=== PATIENT | female | born 1965 | race Caucasian/White ===

== ENCOUNTER 2023-12-07 15:25 | Inpatient (IN) | payer OTHER ==
[2023-12-07 19:06] VITALS: BMI 24.9
[2023-12-07] MEDS ORDERED: DICYCLOMINE HCL 10 MG CAPSULE PO PRN (19:51)
[2023-12-07] MEDS ORDERED: MAG HYDROX/AL HYDROX/SIMETH 30 ML UNIT-DOSE CUP PO PRN (19:51)
[2023-12-07] MEDS ORDERED: MAGNESIUM HYDROX 2400MG/30ML ORAL SUSPENSION 30 ML CUP PO PRN (19:51)
[2023-12-07] MEDS ORDERED: BENZONATATE 200 MG CAPSULE PO PRN (19:51)
[2023-12-07] MEDS ORDERED: NICOTINE POLACRILEX 4 MG GUM BUC PRN (19:51)
[2023-12-07] MEDS ORDERED: IBUPROFEN 600 MG TABLET (FP) PO PRN (19:51)
[2023-12-07] MEDS ORDERED: BENZOCAINE/MENTHOL (CHLORASEPTIC ) LOZENGE MM PRN (19:51)
[2023-12-07] MEDS ORDERED: POLYETHYLENE GLYCOL (HEALTHYLAX) 3350 17 GM PACKET PO PRN (19:51)
[2023-12-07] MEDS ORDERED: IBUPROFEN 400 MG TABLET (FP) PO PRN (19:51)
[2023-12-07] MEDS ORDERED: NALOXONE (NARCAN) HCL 4 MG/0.1 ML SPRAY NS PRN (19:51)
[2023-12-07] MEDS ORDERED: BISMUTH SUBSALICYLATE 524 MG/30 ML PO PRN (19:51)
[2023-12-07] MEDS ORDERED: NALOXONE HCL 0.4 MG/ML VIAL IM PRN (19:51)
[2023-12-07] MEDS ORDERED: ONDANSETRON *ODT* 4 MG TABLET SL PRN (19:51)
[2023-12-07] MEDS ORDERED: LOPERAMIDE HCL 2 MG CAPSULE PO PRN (19:51)
[2023-12-07] MEDS ORDERED: ACETAMINOPHEN 325 MG TABLET (FP) PO PRN (19:51)
[2023-12-07] MEDS ORDERED: guaiFENesin 600 MG TABLET.ER (FP) PO PRN (19:51)
[2023-12-07] MEDS: MELATONIN 5 MG TABLETS PO SCH (23:08)
[2023-12-07] MEDS: THIAMINE 100 MG TABLET PO SCH (23:09)
[2023-12-08] MEDS: methaDONE HCL 10 MG TABLET (FOR DETOX USE ONLY) PO ONE (07:56)
[2023-12-08] MEDS: metFORMIN HCL 500 MG TABLET (FP) PO SCH (07:56)
[2023-12-08] MEDS: BUPRENORPHINE/NALOXONE 0.5 MG/0.125 MG FILM SL ONE ×2 (07:59→22:49)
[2023-12-08] MEDS: PRENATAL VITAMINS W/ FOLIC ACID TABLET (FP) PO SCH (11:07)
[2023-12-08] MEDS: NICOTINE 21 MG/24 HOURS TOPICAL PATCH TD SCH (11:07)
[2023-12-08] MEDS: LISINOPRIL 20 MG TABLET PO SCH (11:08)
[2023-12-08] MEDS: cloNIDine HCL 0.1 MG TABLET PO SCH (11:08)
[2023-12-08 11:35] LABS: HEMATOCRIT 42.6 % (32.4-45.2); HEMOGLOBIN 13.9 GM/dL (10.7-15.3); MCH 26.7 pg (25.7-33.7); MCHC 32.6 g/dl (32.0-36.0); MEAN CELL VOLUME 81.9 fl (80-96); MEAN PLT VOLUME 10.8 fl (7.5-11.1); PLATELET COUNT 118 10^3/uL (134-434); RDW 16.2 % (11.6-15.6); WHITE BLOOD COUNT 6.5 K/mm3 (4.0-10.0)
[2023-12-08 11:36] LABS: CHLORIDE 100 mmol/L (98-107); POTASSIUM 3.3 mmol/L (3.5-5.1); SODIUM 138 mmol/L (136-145)
[2023-12-08 11:41] LABS: ALBUMIN 3.4 g/dl (3.4-5.0); BLOOD UREA NITROGEN 9.4 mg/dL (7-18); SGOT/AST 22 U/L (15-37); SGPT/ALT 26 U/L (13-61)
[2023-12-08] MEDS: DIVALPROEX SODIUM 250 MG TABLET E.C. PO SCH (11:42)
[2023-12-08 11:43] LABS: ANION GAP 7 mmol/L (4-13); BILIRUBIN,TOTAL 0.7 mg/dL (0.2-1); CALCIUM 9.4 mg/dL (8.5-10.1); CO2 31 mmol/L (21-32); GLUCOSE,RANDOM 114 mg/dL (74-106); TOT PROT 7.2 g/dl (6.4-8.2)
[2023-12-08 11:45] LABS: CREATININE 1.1 mg/dL (0.55-1.3)
[2023-12-08 11:46] LABS: ALK PHOS 122 U/L (45-117)
[2023-12-08] MEDS: DIVALPROEX SODIUM 125 MG TABLET E.C. PO SCH (11:54)
[2023-12-08] MEDS ORDERED: SENNOSIDES 8.6MG TABLET (FP) PO SCH (22:00)
[2023-12-08] MEDS: ATORVASTATIN CA 20 MG TABLET (FP) PO SCH (22:48)
[2023-12-08] MEDS: MIRTAZAPINE 15 MG TABLET (FP) PO SCH (22:49)
[2023-12-08] MEDS: QUEtiapine FUMARATE 200 MG TABLET PO SCH (22:49)
[2023-12-08] MEDS: SENNOSIDES 8.6MG TABLET (FP) PO SCH (22:49)
[2023-12-09] MEDS: BUPRENORPHINE/NALOXONE 0.5 MG/0.125 MG FILM SL SCH (10:14)
[2023-12-09] MEDS: POTASSIUM CHLORIDE ORAL LIQUID 20 MEQ/15 ML PO SCH (10:17)
[2023-12-10] MEDS: BUPRENORPHINE/NALOXONE 2 MG/0.5 MG FILM PACKET SL SCH (09:36)
[2023-12-10] MEDS: methaDONE HCL 10 MG TABLET (FOR DETOX USE ONLY) PO ONE (09:39)
[2023-12-11] MEDS: BUPRENORPHINE/NALOXONE 4 MG/1 MG FILM PACKET SL SCH (09:11)
[2023-12-11] MEDS: amLODIPine BESYLATE 5 MG TABLET (FP) PO SCH (10:59)
[2023-12-12] MEDS: BUPRENORPHINE/NALOXONE 8 MG/2 MG FILM PACKET SL SCH (09:40)
[2023-12-12] MEDS: methaDONE HCL 10 MG TABLET (FOR DETOX USE ONLY) PO ONE (09:40)
[2023-12-13 09:42] VITALS: BP 141/75; PULSE 88; RESP 18; TEMP 97.7
[2023-12-13] MEDS ORDERED: BUPRENORPHINE/NALOXONE 8 MG/2 MG FILM PACKET SL SCH (10:00)
[2023-12-13] MEDS: BUPRENORPHINE/NALOXONE 8 MG/2 MG FILM PACKET SL SCH (10:15)
== END 2023-12-13 10:52 | disposition home or self-care (01) | DRG 773 ==
LOC: YASAS 15:25 → Y6N 21:07 → UNDOADMIN 21:07 → Y6N 22:35
PROVIDERS: ADMIT Allergy & Immunology; ATTEND Surgery
PROC: HZ2ZZZZ Detoxification Services for Substance Abuse Treatment (ICD-10-PCS; principal; 2023-12-07)
DX: F11.23 Opioid dependence with withdrawal (principal); F10.20 Alcohol dependence, uncomplicated; F14.20 Cocaine dependence, uncomplicated; F17.210 Nicotine dependence, cigarettes, uncomplicated; F25.0 Schizoaffective disorder, bipolar type; F31.9 Bipolar disorder, unspecified; F19.982 Other psychoactive substance use, unspecified with psychoactive substance-induced sleep disorder; I10 Essential (primary) hypertension; E11.9 Type 2 diabetes mellitus without complications; E78.5 Hyperlipidemia, unspecified; J45.20 Mild intermittent asthma, uncomplicated; Z79.84 Long term (current) use of oral hypoglycemic drugs; Z91.51 Personal history of suicidal behavior; Z59.00 Homelessness unspecified
CPT/HCPCS: 36415; 80053; 80305; 80307; 82962; 84132; 85027; 86780; 93005; 93010